=== PATIENT | male | born 1980 | race Two or more races ===

== ENCOUNTER 2022-03-18 16:07 | Emergency (ER) | payer MEDICAID ==
[~2022-03-18] VITALS: Ht 170.2 cm; Wt 136.1 kg
[2022-03-18 16:19] VITALS: BP 169/95
[2022-03-18] MEDS ORDERED: TETRACAINE HCL 0.5% OPTH(EYE) SOLN 4ML ONE (16:35)
[2022-03-18] MEDS ORDERED: TETRACAINE HCL 0.5% OPTH(EYE) SOLN 4ML LEFTEYE ONE (16:45)
[2022-03-18] MEDS ORDERED: CIP03OS RIGHTEYE (16:49)
== END 2022-03-18 16:53 | disposition home or self-care (01) ==
LOC: ER 16:07
DX: T15.01XA Foreign body in cornea, right eye, initial encounter (principal); W22.8XXA Striking against or struck by other objects, initial encounter; Y93.89 Activity, other specified; Y92.89 Other specified places as the place of occurrence of the external cause; Y99.8 Other external cause status
CPT/HCPCS: 65222